=== PATIENT | male | born 1970 | race Caucasian/White ===

== ENCOUNTER 2016-10-23 07:32 | Inpatient (IN) | payer OTHER ==
[2016-10-23] MEDS ORDERED: SODIUM CHLORIDE 0.9% 1,000 ML IV STA (07:36)
[2016-10-23] MEDS ORDERED: ONDANSETRON 4 MG/2 ML VIAL IVP STA (07:36)
[2016-10-23] MEDS ORDERED: ASPIRIN 81 MG CHEW PO STA (07:36)
[2016-10-23] MEDS ORDERED: MORPHINE SULFATE 4 MG/ML SYRINGE IV STA (07:36)
[2016-10-23] MEDS ORDERED: NITROGLYCERIN OINT 1 INCH/GM PACKET TOPICAL STA (07:36)
[2016-10-23 07:53] LABS: Basophils # (A) 0.1 k/uL (0-0.2); Basophils % (A) 0 %; CH 31.6; CHCM 34.3; Eosinophils # (A) 0.6 k/uL (0-0.7); Eosinophils % (A) 3 %; HDW 2.46; HGB 19.3 gm/dL (13.0-17.5); Luc # (Auto) 0.17; Luc % (Auto) 1; Lymphocytes # (A) 0.7 k/uL (1.0-4.8); Lymphocytes % (A) 3 %; MCH 31.9 pg (25.0-35.0); MCHC 34.4 g/dL (31.0-37.0); MCV 92.6 fL (80.0-100.0); Mean Platelet Volume 7.4; Monocytes # (A) 0.8 k/uL (0-1.0); Monocytes % (A) 4 %; Neutrophils # (A) 16.9 k/uL (1.3-7.7); Neutrophils % (A) 88 %; RBC 6.05 m/uL (4.30-5.90); WBC 19.2 k/uL (3.8-10.6); WBC (Perox) 20.43
[2016-10-23] MEDS ORDERED: SODIUM CHLORIDE 0.9% 1,000 ML IV ONE (07:58)
[2016-10-23] MEDS ORDERED: HYDROmorphone 1 MG/ML 1 ML SYRINGE IVP STA (07:58)
[2016-10-23] MEDS ORDERED: LORazepam 2 MG/ML SYRINGE IV STA (08:03)
[2016-10-23 08:08] LABS: Partial Thromboplastin Time 23.3 sec (22.0-30.0); Prothrombin Time 10.6 sec (9.0-12.0)
[2016-10-23 08:09] LABS: ALT 108 U/L (21-72); AST 61 U/L (17-59); Alkaline Phosphatase 123 U/L (38-126); Anion Gap 17 mmol/L; Blood Urea Nitrogen 15 mg/dL (9-20); Calcium 10.7 mg/dL (8.4-10.2); Carbon Dioxide 27 mmol/L (22-30); Chloride 103 mmol/L (98-107); Glucose 173 mg/dL (74-99); Magnesium 1.9 mg/dL (1.6-2.3); Non-African American GFR(MDRD) >60 (>60 ml/min/1.73 sqM); Potassium 5.6 mmol/L (3.5-5.1); Sodium 147 mmol/L (137-145); Total Bilirubin 0.9 mg/dL (0.2-1.3); Total Protein 8.8 g/dL (6.3-8.2)
--- NOTE | 2016-10-23 08:16 | ED ---
Chest Pain HPI - General Chief Complaint: Chest Pain Stated Complaint: chest pain Time Seen by Provider: 10/23/16 07:36 Source: patient, family, EMS Mode of arrival: EMS - History of Present Illness Initial Comments: History of heart disease, NH he had MIs in the last 2 years presented to the ER around 7:30 AM with chest pain chest pain started about an hour ago he did does smoke cocaine and be bit nauseous is short-winded is diaphoretic and also feeling palpitations. Denies any headaches no neck stiffness has chest pain and he has shortness of breath and chest pain is worse with deep breaths he denies any fever no chills she is not coughing up any phlegm. Denies any abdominal pain no frequency urgency dysuria - Related Data Home Medications Medication Instructions Recorded Confirmed Nitroglycerin Sl Tabs [Nitrostat] 0.4 mg SUBLINGUAL Q5M PRN 10/23/16 10/23/16 Allergies Allergy/AdvReac Type Severity Reaction Status Date / Time No Known Allergies Allergy Verified 10/23/16 08:47 Review of Systems ROS Statement: Those systems with pertinent positive or pertinent negative responses have been documented in the HPI. ROS Other: All systems not noted in ROS Statement are negative. EKG Findings - EKG Comments: EKG Findings:: EKG is atrial fibrillation ventricular rate is 168 AL interval is , QRS duration is 86 QT/QTc is 270/451 review of this EKG shows some ST depression in lead 2 and aVF noticed , no ST elevation noticed in any of the EKGs Past Medical History Past Medical History: Coronary Artery Disease (CAD), COPD, Hypertension, Myocardial Infarction (NH) Additional Past Medical History / Comment(s): back injury sciatica, arthritis History of Any Multi-Drug Resistant Organisms: None Reported Past Surgical History: Orthopedic Surgery Additional Past Surgical History / Comment(s): knee Past Anesthesia/Blood Transfusion Reactions: No Reported Reaction Past Psychological History: No Psychological Hx Reported Smoking Status: Current every day smoker Past Alcohol Use History: Daily Past Drug Use History: Cocaine - Past Family History Mother Family Medical History: Myocardial Infarction (NH) Additional Family Medical History / Comment(s): Heart issues, unsure of General Exam - General Exam Comments Initial Comments: General: The patient is awake and alert, he is quite anxious. Skin: Skin is warm and dry and no rashes or lesions are noted. He has a psoriasis Eye: Pupils are equal, round and reactive to light, extra-ocular movements are intact; there is normal conjunctiva bilaterally. Ears, nose, mouth and throat: There are moist mucous membranes and no oral lesions. Neck: The neck is supple, there is no tenderness or JVD. Cardiovascular: On arrival he is atrial fibrillation with fast ventricular rate was around 150 the time of exam Respiratory: To auscultation bilateral, decreased breath sounds bilateral Gastrointestinal: Soft, non-distended, non-tender abdomen without masses or organomegaly noted. There is no rebound or guarding present. Bowel sounds are unremarkable. Back: There is no tenderness to palpation in the midline. There is no obvious deformity. Musculoskeletal: Normal ROM, no tenderness, There is no pedal edema. There is no calf tenderness or swelling. No cords were appreciated. Neurological: CN II-XII intact, Cranial nerves III through XII are intact. There are no obvious motor or sensory deficits. Coordination appears grossly intact. Speech is normal. Psychiatric: Cooperative, appropriate mood & affect, normal judgment. Course Vital Signs 10/23/16 10/23/16 07:37 08:00 Temperature 97.9 F Pulse Rate 169 H 104 H Respiratory 18 18 Rate Blood Pressure 138/99 130/68 O2 Sat by Pulse 99 2 L Oximetry I dictated the first EKG we noticed significant change in his EKG around 810, this EKG is a sinus echocardiogram Dedra is a 6 AL interval is 142 QRS duration is 88 QT/QTc is 320/25 of review of this EKG does not reveal any ST elevation or ST depression and it's not atrial fibrillation anymore Critical Care Time Total Critical Care Time: 45 Critical Care Time: Abdomen thin and with the [place] chest pain his heart rate was 169 according to her EKG with atrial fibrillation he smoked some mom snorted some cocaine earlier today he was quite diaphoretic quite distressed out he was resuscitated with fluids for some morphine with some benzos and then his heart rate dropped to 70 send him and he converted to sinus rhythm we held the beta blockers on purpose because is contraindicated in the cocaine induced tachycardia he was reassessed quite a few times last reassessment was done at 9:20 AM he is a lot more, now his heart rate is sinus his chest pain is down to 1/10 considering his chest pain and history of coronary artery disease and now. History of drug abuse especially cocaine he needs to be admitted considering his high high risk area I am canal hold off the blood thinners considering his risk of fall cerebral bleed abdominal the cardiology due to the sedation and that he will be on nitro and morphine in the benzos for now he is getting fluid hydration fluid he got a fluid resuscitation as well as some oxygen he be admitted under Dr. Tobias service and now [facility] and [facility] cardiology be consulted Disposition Clinical Impression: Tachycardia, Chest pain, Atrial fibrillation with rapid ventricular response Disposition: ADMITTED IP TO THIS HOSP Condition: Fair Referrals: None,Stated [Primary Care Provider] - 1-2 days
[2016-10-23 08:19] LABS: Creatine Kinase 284 U/L (55-170)
[2016-10-23 08:32] LABS: Troponin I <0.012 ng/mL (0.000-0.034)
[2016-10-23 08:34] LABS: Creatine Kinase MB 3.4 ng/mL (0.0-2.4)
--- NOTE | 2016-10-23 08:54 | XR ---
EXAMINATION TYPE: XR chest 2V DATE OF EXAM: 10/23/2016 8:29 AM COMPARISON: 02/03/2016 HISTORY: Chest pain TECHNIQUE: Frontal and lateral views of the chest are obtained. Examination is limited by the degree of inspiration. FINDINGS: There is no focal air space opacity, pleural effusion, or pneumothorax seen. The cardiac silhouette size is within normal limits. The osseous structures are intact. IMPRESSION: No acute cardiopulmonary process.
[2016-10-23] MEDS ORDERED: ACETAMINOPHEN TAB 325 MG TAB PO PRN (09:28)
[2016-10-23] MEDS ORDERED: ALPRAZolam 0.5 MG TAB PO PRN (09:28)
[2016-10-23] MEDS ORDERED: MORPHINE SULFATE 4 MG/ML SYRINGE IV PRN (09:28)
[2016-10-23] MEDS ORDERED: NITROGLYCERIN SL TABS 0.4 MG TAB SUBLINGUAL PRN (09:28)
[2016-10-23] MEDS ORDERED: IPRATROPIUM-ALBUTEROL 3 ML NEB INHALATION PRN (13:44)
--- NOTE | 2016-10-23 14:02 | P.CRDCN ---
History of Present Illness Consult date: 10/23/16 History of present illness: This is a 46-year-old gentleman with history of alcohol use and also cocaine use came to the hospital with complaints of generalized body ache chest pains and not feeling well. He was found to be in atrial fibrillation with fast ventricular response. It appears that patient converted to sinus rhythm before he left the emergency room. He is feeling better today. He did have a white count elevation also. He is also has some liver enzyme elevations. His first set of troponins are within normal limits. His conversion EKG shows sinus rhythm without acute ST-T abnormalities. We are going to get a echocardiogram and also serial cardiac enzymes studies. I'll start him on beta mina and aspirin. Further recommendations will depend upon clinical course. Review of Systems As per the chart Past Medical History Past Medical History: Coronary Artery Disease (CAD), COPD, Hyperlipidemia, Hypertension, Myocardial Infarction (DE) Additional Past Medical History / Comment(s): Pt states he had a small "DE" 2-3 yrs ago-it was suggested he have a cardiac cath but he declined, defect involving his spine, back pain, bilateral sciatica, syncopy r/t ETOH. Last Myocardial Infarction Date:: 2-3 yrs ago per pt History of Any Multi-Drug Resistant Organisms: None Reported Past Surgical History: Orthopedic Surgery Additional Past Surgical History / Comment(s): R knee arthroscopy. Past Anesthesia/Blood Transfusion Reactions: No Reported Reaction Past Psychological History: No Psychological Hx Reported Additional Psychological History / Comment(s): Pt resides with his significant other. He uses a cane/walker prn. He drives. Smoking Status: Current every day smoker Past Alcohol Use History: Occasional Additional Past Alcohol Use History / Comment(s): Pt started smoking in 1987 and is a 2 ppd smoker. He states he drinks alcohol every couple months now. Past Drug Use History: Cocaine Additional Drug Use History / Comment(s): Pt states he uses cocaine and last used last night. - Past Family History Mother Family Medical History: Myocardial Infarction (DE) Additional Family Medical History / Comment(s): Heart issues, unsure of what kind. States "heart problems run in the family." Father History Unknown: Yes Medications and Allergies Home Medications Medication Instructions Recorded Confirmed Type Nitroglycerin Sl Tabs [Nitrostat] 0.4 mg SUBLINGUAL Q5M PRN 10/23/16 10/23/16 History Allergies Allergy/AdvReac Type Severity Reaction Status Date / Time No Known Allergies Allergy Verified 10/23/16 08:47 Physical Exam Vitals: Vital Signs Temp Pulse Pulse Resp BP BP Pulse Ox 10/23/16 10:18 112 H 18 132/74 96 10/23/16 10:09 98.2 F 120 H 18 153/72 94 L Intake and Output 10/22/16 10/23/16 10/23/16 22:59 06:59 14:59 Output Total 200 Balance -200 Output: Urine 200 GENERAL EXAM: Patient is alert and oriented and doesn't appear to be in any acute distress HEENT: Normocephalic. Normal reaction of pupils, equal size, normal range of extraocular motion. No erythema or exudates in the throat. NECK: No masses, no nuchal rigidity. CHEST: No chest wall deformity. LUNGS: Expiratory rhonchi. HEART: S1 and S2 normal with no audible mumurs or gallops. Regular rhythm, ABDOMEN: No hepatosplenomegaly, normal bowel sounds, no guarding or rigidity. SKIN: No rashes CENTRAL NERVOUS SYSTEM: No focal deficits. EXTREMITIES: No cyanosis, clubbing or edema. Results 10/23/16 07:40 10/23/16 07:40 Current Medications Generic Name Dose Route Start Last Admin Trade Name Freq PRN Reason Stop Dose Admin Acetaminophen 650 mg 10/23/16 09:28 Tylenol Tab PO Q4HR PRN Pain Albuterol/Ipratropium 3 ml 10/23/16 13:44 Duoneb 0.5 Mg-3 Mg/3 Ml Soln INHALATION RT-QID PRN Shortness Of Breath Or Wheezing Alprazolam 0.5 mg 10/23/16 09:28 Xanax PO QID PRN Anxiety Aspirin 325 mg 10/24/16 09:00 Aspirin PO DAILY KIRSTIN Atorvastatin Calcium 40 mg 10/23/16 21:00 Lipitor PO HS KIRSTIN Sodium Chloride 1,000 mls @ 100 mls/hr 10/23/16 07:36 10/23/16 07:56 Saline 0.9% IV 10/23/16 17:35 100 mls/hr .Q10H STA Administration Sodium Chloride 1,000 mls @ 100 mls/hr 10/23/16 13:45 Saline 0.9% IV .Q10H KIRSTIN Morphine Sulfate 4 mg 10/23/16 09:28 Morphine Sulfate (Inj) IV Q5M PRN Chest Pain Nitroglycerin 0.4 mg 10/23/16 09:28 Nitrostat SUBLINGUAL Q5M PRN Chest Pain Pantoprazole Sodium 40 mg 10/23/16 13:45 Protonix IVP BID KIRSTIN Intake and Output 10/22/16 10/23/16 10/23/16 22:59 06:59 14:59 Output Total 200 Balance -200 Output: Urine 200 EKG Interpretations (text) Initial EKG showed atrial fibrillation with a rapid ventricular response. Current EKG showed sinus rhythm and sinus tachycardia Assessment and Plan (1) History of cocaine use Status: Acute (2) Atrial fibrillation with rapid ventricular response Status: Acute (3) Acute alcohol intoxication Status: Acute (4) Elevated AST (SGOT) Status: Acute Plan: We'll get an echocardiogram with Doppler study. Follow Cardec enzymes studies. Thyroid function studies will be obtained patient is advised to quit smoking and using cocaine pain I'll start him on beta mina and aspirin. Patient may benefit from a stress test in the future to rule out underlying ischemic heart disease.
[2016-10-23 14:44] LABS: Troponin I 0.022 ng/mL (0.000-0.034)
[2016-10-23 14:45] LABS: Creatine Kinase MB 3.7 ng/mL (0.0-2.4)
[2016-10-23 15:04] LABS: Hepatitis B Surface Ag Index 0.05
[2016-10-23 15:09] LABS: Hepatitis B Core IgM Index 0.02
[2016-10-23 15:21] LABS: Hepatitis C Virus IgG Index 0.02
[2016-10-23 15:22] LABS: Hepatitis C Virus IgG Ab Negative (Negative)
--- NOTE | 2016-10-23 16:37 | HP ---
DATE OF ADMISSION: Patient with history of alcohol abuse came to the hospital with complaints of not feeling well and palpitations. Patient was found to be in atrial fibrillation with rapid ventricular rate. Patient was subsequently admitted and patient was found to be dry with elevated hemoglobin, hemoconcentration, elevated WBC count. Patient also has elevated liver enzymes. AST and ALT ratio are not consistent with alcoholic hepatitis. Patient was subsequently admitted for further evaluation. Patient did use cocaine yesterday morning. Patient started having chest pain today, which is in the retrosternal area, nonradiating, associated with diaphoresis, associated with nausea. Denied any shortness of breath, although patient was unable to drink alcohol. Patient is an alcoholic and used to drink alcohol every day. He quit drinking alcohol every day, but he tried to drink alcohol yesterday and he was unable to drink alcohol because of his the retrosternal and epigastric abdominal pain and nausea. Patient was started on beta mina by Cardiology. I believe it is okay since his cocaine use was yesterday. With recent cocaine use beta mina can cause unopposed alpha adrenergic predominance, which can cause significant vasoconstriction. Thereby precipitating myocardial infarction, although cocaine use was yesterday. I believe beta mina is okay, but I will debt management counselor the patient regarding use beta blockers and cocaine can actually make him have a heart attack. Patient denied any fever, chills, cough. Chest x-ray did not show any acute cardiopulmonary process. Patient is not wheezing at this point of time. The patient does smoke every single day and does have history of COPD. REVIEW OF SYSTEMS: CONSTITUTIONAL: No fever, no malaise, no fatigue. HEENT: No recent visual problems or hearing problems. Denied any sore throat. CARDIOVASCULAR: As described in HPI. PULMONARY: As described in HPI. GASTROINTESTINAL: No diarrhea, no nausea, no vomiting, no abdominal pain. Normoactive bowel sounds. NEUROLOGICAL: No headaches, no weakness, no numbness. HEMATOLOGICAL: Denies any bleeding or petechiae. GENITOURINARY: Denies any burning micturition, frequency, or urgency. MUSCULOSKELETAL/RHEUMATOLOGICAL: Denies any joint pain, swelling, or any muscle pain. ENDOCRINE: Denies any polyuria or polydipsia. The rest of the 14 point review of systems is negative. PAST MEDICAL HISTORY: Significant for coronary artery disease, COPD, hyperlipidemia, hypertension. Patient says he had a small myocardial infarction in the past. Never had any cardiac cath in the past. Patient most probably had gastritis at that time. Orthopedic surgery, left knee arthroscopy. Patient continues to smoke a pack per day. Denied any alcohol abuse but does drink on and off alcohol. He used to be an alcoholic. He does use cocaine on and off. Last cocaine use was yesterday morning and his chest pain yesterday morning. FAMILY HISTORY: Mother had myocardial infarction. Father does not have any significant medical problems. Home medications include: Sublingual nitroglycerin. ALLERGIES: No known drug allergies. PHYSICAL EXAMINATION: VITAL SIGNS: Temperature 98.2, pulse of 120, blood pressure is 153/72, respiratory rate of 18, saturating at 96% on 2 L of O2 nasal cannula. GENERAL: The patient is alert and oriented x3, not in any acute distress. Well developed, well nourished. HEENT: Pupils are round and equally reacting to light. EOMI. No scleral icterus. No conjunctival pallor. Normocephalic, atraumatic. No pharyngeal erythema. No thyromegaly. CARDIOVASCULAR: S1 and S2 present. Patient is tachycardic. Regular rhythm. No murmurs, rubs, or gallops are appreciated. PULMONARY: Chest is clear to auscultation, no wheezing or crackles. ABDOMEN: Soft, nontender, nondistended, normoactive bowel sounds. No palpable organomegaly. MUSCULOSKELETAL: No joint swelling or deformity. EXTREMITIES: No cyanosis, clubbing, or pedal edema. NEUROLOGICAL: Gross neurological examination did not reveal any focal deficits. SKIN: No rashes. LABORATORY DATA: CBC, CMP are abnormal for elevated WBC 19,200. Hemoglobin is 9.3 and potassium is 5.6, because of this I discontinued his lisinopril. Sodium of 147, calcium 10.7, AST and ALT are elevated 61 and 108 not typical ratio for alcoholic hepatitis, because of which I will obtain a hepatitis panel, which was negative. TSH is 2.7. ASSESSMENT AND PLAN: 1. Atrial fibrillation with rapid ventricular rate and patient is spontaneously converted to sinus tachycardia. Management as mentioned above. I believe his tachycardia was due to intravascular depletion and dehydration secondary to alcohol use and cocaine use. Management as mentioned above. 2. Cocaine use. Counseling was provided. 3. 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 4. Elevated liver enzymes. Management as mentioned above. Will repeat liver enzymes for tomorrow and make sure they are not going up. Patient will be continued on IV fluids at this time at 100 mL per hour. Repeat electrolytes tomorrow. 5. Elevated hematocrit, probably due to nicotine use or even dehydration. 6. Mild hypercalcemia, which I believe is secondary to dehydration and intravascular depletion. Recheck calcium tomorrow. If no further testing is necessary if it comes down. 7. Hyperkalemia secondary to mild renal failure and also secondary to lisinopril. 8. Acute renal failure due to intravascular volume depletion and dehydration. 9. Patient's d-dimer is negative. 10. Leukocytosis, I believe, is reactive response. Patient does not appear to have any infection at this point of time. 11. Extensive counseling regarding nicotine use, alcohol use, cocaine use was provided. 12. Patient's primary care physician is none.
[2016-10-23] MEDS: PANTOPRAZOLE 40 MG/10 ML VIAL IVP SCH ×2 (17:09→20:50)
[2016-10-23] MEDS: SODIUM CHLORIDE 0.9% 1,000 ML IV SCH ×2 (17:10→23:45)
[2016-10-23] MEDS: METOPROLOL TARTRATE 25 MG TAB PO SCH ×2 (17:10→20:50)
--- NOTE | 2016-10-23 19:31 | US ---
EXAMINATION TYPE: US gallbladder DATE OF EXAM: 10/23/2016 7:08 PM COMPARISON: NONE CLINICAL HISTORY: RUQ pain, NPO, GB removed x 6 years ago. EXAM MEASUREMENTS: Liver Length: 15.9 cm CHD: 0.8 cm Right Kidney: 10.9 x 7.2 x 6.5 cm TECHNOLOGIST IMPRESSION: Suboptimal visualization of right kidney due to bowel gas Pancreas: echogenic, head and tail not well seen due to overlying bowel gas Liver: echogenic Gallbladder: removed CBD: wnl Right Kidney: Upper pole cyst vs prominent pyramid = 2.1 x 1.6 x 1.4 cm IMPRESSION: Cholecystectomy. No dilated ducts. 2 cm cyst in the upper pole right kidney. No hydroneph rosis. No evidence of a pancreatic mass. I do not see a cause for right upper quadrant pain. Normal Values: Liver Length: < 16cm wnl, 17-18cm upper limits, >18cm enlarged Renal Length = 9 - 12cm GB Wall: < 0.3cm CBD: < 0.6cm or < 1.0cm post cholecystectomy
[2016-10-23 20:04] LABS: Troponin I 0.019 ng/mL (0.000-0.034)
[2016-10-23] MEDS ORDERED: ATORVASTATIN 40 MG TAB PO SCH (21:00)
[2016-10-23 22:04] VITALS: RESP 18
[2016-10-24 06:35] LABS: ALT 66 U/L (21-72); AST 31 U/L (17-59); Alkaline Phosphatase 75 U/L (38-126); Anion Gap 8 mmol/L; Blood Urea Nitrogen 15 mg/dL (9-20); Calcium 8.6 mg/dL (8.4-10.2); Carbon Dioxide 26 mmol/L (22-30); Chloride 105 mmol/L (98-107); Cholesterol 137 mg/dL (<200); Glucose 101 mg/dL (74-99); HDL Cholesterol 27 mg/dL (40-60); Non-African American GFR(MDRD) >60 (>60 ml/min/1.73 sqM); Potassium 4.6 mmol/L (3.5-5.1); Sodium 139 mmol/L (137-145); Total Bilirubin 0.7 mg/dL (0.2-1.3); Total Protein 5.8 g/dL (6.3-8.2); Triglycerides 110 mg/dL (<150)
[2016-10-24] MEDS: METOPROLOL TARTRATE 25 MG TAB PO SCH (08:45)
[2016-10-24] MEDS: SODIUM CHLORIDE 0.9% 1,000 ML IV SCH (08:45)
[2016-10-24] MEDS: PANTOPRAZOLE 40 MG/10 ML VIAL IVP SCH (08:46)
[2016-10-24] MEDS ORDERED: ASPIRIN 325 MG TAB PO SCH (09:00)
[2016-10-24] MEDS ORDERED: LISINOPRIL 10 MG TAB PO SCH (09:00)
--- NOTE | 2016-10-24 10:35 | ECHOF ---
Referral Reason:Chest pain and cardiomyopathy MEASUREMENTS -------- HEIGHT: 167.6 cm WEIGHT: 96.6 kg BP: RVIDd: 3.1 cm (< 3.3) IVSd: 1.1 cm (0.6 - 1.1) LVIDd: 4.2 cm (3.9 - 5.3) LVPWd: 1.1 cm (0.6 - 1.1) IVSs: 1.7 cm LVIDs: 2.5 cm LVPWs: 1.6 cm LA Diam: 2.9 cm (2.7 - 3.8) Ao Diam: 3.4 cm (2.0 - 3.7) AV Cusp: 2.3 cm (1.5 - 2.6) LA Diam: 3.2 cm (2.7 - 3.8) MV EXCURSION: 15.618 mm (> 18.000) MV EF SLOPE: 145 mm/s (70 - 150) EPSS: 0.5 cm MV E Satnam: 0.81 m/s MV DecT: 139 ms MV A Satnam: 0.91 m/s MV E/A Ratio: 0.89 RAP: 5.00 mmHg RVSP: 14.60 mmHg FINDINGS -------- Sinus rhythm. This was a technically good study. There is borderline concentric left ventricular hypertrophy. Overall left ventricular systolic function is normal with, an EF between 60 - 65 %. The right ventricle is normal in size. The left atrial size is normal. The right atrium is normal in size. The aortic valve is trileaflet and appears structurally normal. The mitral valve leaflets are mildly thickened. Mild mitral annular calcification present. Trace tricuspid regurgitation present. Right ventricular systolic pressure is normal at < 35 mmHg. Pulmonic valve appears structurally normal. The aortic root size is normal. Normal inferior vena cava with normal inspiratory collapse consistent with estimated right atrial pressure of 5 mmHg. Echo free space may represent effusion or a pericardial fat pad. CONCLUSIONS -------- 1. Sinus rhythm. 2. Mild mitral annular calcification present. 3. Trace tricuspid regurgitation present. 4. Right ventricular systolic pressure is normal at < 35 mmHg. 5. Pulmonic valve appears structurally normal. 6. The aortic root size is normal. 7. Echo free space may represent effusion or a pericardial fat pad. 8. This was a technically good study. 9. There is borderline concentric left ventricular hypertrophy. 10. Overall left ventricular systolic function is normal with, an EF between 60 - 65 %. 11. The right ventricle is normal in size. 12. The left atrial size is normal. 13. The right atrium is normal in size. 14. The aortic valve is trileaflet and appears structurally normal. 15. The mitral valve leaflets are mildly thickened. REGIONAL SALES CONSULTANT: Jovanna Rachel RDCS
[2016-10-24 11:53] LABS: CH 31.4; CHCM 32.7; HCT 45.5 % (39.0-53.0); HDW 2.44; MCH 31.8 pg (25.0-35.0); MCHC 32.9 g/dL (31.0-37.0); MCV 96.6 fL (80.0-100.0); Mean Platelet Volume 8.9; RBC 4.71 m/uL (4.30-5.90); WBC 8.9 k/uL (3.8-10.6)
--- NOTE | 2016-10-24 14:37 | P.PN ---
Subjective This is a 46-year-old gentleman with history of alcohol use and also cocaine use came to the hospital with complaints of generalized body ache chest pains and not feeling well. He was found to be in atrial fibrillation with fast ventricular response. It appears that patient converted to sinus rhythm before he left the emergency room. He is feeling better today. He did have a white count elevation also. He is also has some liver enzyme elevations. Troponins were negative 3. Ejection fraction by echocardiographic study was 60-65%. Patient feels well overall today. Denies any further chest discomfort. Objective - Vital Signs Vital signs: Vital Signs Temp 97.0 F L 10/24/16 12:00 Pulse 72 10/24/16 12:00 Resp 18 10/24/16 12:00 BP 115/67 10/24/16 12:00 Pulse Ox 94 L 10/24/16 08:00 Intake & Output 10/23/16 10/24/16 10/24/16 18:59 06:59 18:59 Intake Total 500 700 Output Total 200 Balance 300 700 Weight 95.2 kg Intake: IV 500 700 Sodium Chloride 0.9% 1, 500 700 000 ml @ 100 mls/hr IV . Q10H KIRSTIN Rx#:[id number] Oral 0 Output: Urine 200 Other: # Voids 0 - Exam PHYSICAL EXAMINATION: HEENT: Head is atraumatic, normocephalic. Pupils equal, round. Neck is supple. There is no elevated jugular venous pressure. HEART EXAMINATION: Heart S1, S2 normal. No murmur or gallop heard. CHEST EXAMINATION: Lungs are clear to auscultation and precussion. No chest wall tenderness is noted on palpation or with deep breathing. ABDOMEN: Soft, nontender. Bowel sounds are heard. No organomegaly noted. EXTREMITIES: 2+ peripheral pulses with no evidence of peripheral edema and no calf tenderness noted. NEUROLOGIC patient is awake, alert and oriented -3. . - Labs CBC & Chem 7: 10/24/16 05:41 10/24/16 05:41 Labs: Abnormal Lab Results - Last 24 Hours (Table) 10/23/16 10/23/16 10/24/16 Range/Units 13:29 19:19 05:41 Glucose 101 H (74-99) mg/dL Total Creatine Kinase 198 H 171 H (55-170) U/L CK-MB (CK-2) 3.7 H* 3.0 H* (0.0-2.4) ng/mL Total Protein 5.8 L (6.3-8.2) g/dL Albumin 3.4 L (3.5-5.0) g/dL HDL Cholesterol 27 L (40-60) mg/dL Assessment and Plan (1) ETOH abuse Status: Acute (2) Acute renal failure Status: Acute (3) Atrial fibrillation with rapid ventricular response Status: Acute (4) History of cocaine use Status: Acute (5) Elevated AST (SGOT) Status: Acute Plan: Cardiology's perspective, patient may be able to be discharged home today. We will make him a follow-up appointment to see Dr. Dunham in the office post discharge. DNP note has been reviewed, I agree with a documented findings and plan of care. Patient was seen and examined.
[2016-10-24 17:01] VITALS: PULSE 84
[2016-10-24 17:06] VITALS: BP 119/74; TEMP 97.1
[2016-10-24] MEDS ORDERED: CARVEDILOL 3.125 MG TAB PO SCH (17:30)
[2016-10-25] MEDS ORDERED: ASPIRIN 81 MG CHEW PO SCH (09:00)
[2016-10-25] MEDS ORDERED: PANTOPRAZOLE 40 MG TABLET PO SCH (09:00)
== END 2016-10-24 18:25 | disposition home or self-care (01) | DRG 309 ==
LOC: EC 07:32 → 6SEL 09:28
PROVIDERS: ADMIT Hospitalist; ATTEND Hospitalist
DX: I48.91 Unspecified atrial fibrillation (principal); N17.9 Acute kidney failure, unspecified; E83.52 Hypercalcemia; E87.5 Hyperkalemia; E86.0 Dehydration; I10 Essential (primary) hypertension; Q76.49 Other congenital malformations of spine, not associated with scoliosis; F14.10 Cocaine abuse, uncomplicated; J44.9 Chronic obstructive pulmonary disease, unspecified; R74.8 Abnormal levels of other serum enzymes; I25.10 Atherosclerotic heart disease of native coronary artery without angina pectoris; F10.229 Alcohol dependence with intoxication, unspecified; T46.4X5A Adverse effect of angiotensin-converting-enzyme inhibitors, initial encounter; K29.20 Alcoholic gastritis without bleeding; M54.42 Lumbago with sciatica, left side; I25.2 Old myocardial infarction; M54.41 Lumbago with sciatica, right side; R07.9 Chest pain, unspecified; R11.0 Nausea; F17.200 Nicotine dependence, unspecified, uncomplicated; M19.90 Unspecified osteoarthritis, unspecified site; E78.5 Hyperlipidemia, unspecified; D72.829 Elevated white blood cell count, unspecified; Z71.6 Tobacco abuse counseling; Z82.49 Family history of ischemic heart disease and other diseases of the circulatory system; Z71.51 Drug abuse counseling and surveillance of drug abuser
CPT/HCPCS: 36415; 71020; 76705; 80053; 80061; 80074; 82550; 82553; 83735; 83880; 84443; 84484; 85025; 85027; 85379; 85610; 85730; 93005; 93306; 96361; 96374; 96375; 99291

== ENCOUNTER 2017-02-11 16:52 | Emergency (ER) | payer OTHER ==
[2017-02-11] MEDS ORDERED: SODIUM CHLORIDE 0.9% 1,000 ML IV ONE (17:02)
--- NOTE | 2017-02-11 17:09 | ED ---
Syncope HPI - General Chief Complaint: Syncope Stated Complaint: Head Injury/Laceration Time Seen by Provider: 02/11/17 16:59 Source: RN notes reviewed, old records reviewed - History of Present Illness Initial Comments: Patient is 47-year-old male with chief complaint of coughing so hard to the point he passed out. Patient reports that when he passed out he fell and hit his head on the cement floor. Family stated that this occurred approximately 30 minutes prior to arrival. He did lose consciousness for approximately 2 minutes. Patient states that he does have a laceration over the back scalp. She does report he has neck pain. Patient was placed in a c-collar upon triage. Patient denies any chest pain or shortness breath at this time. Patient states that he is does have a history of COPD. He states he's never coughed this hard before. Denies any fever or chills or abdominal pain. Patient reports that he is sweaty.Patient has a past medical history of GERD, dysuria intermittent A. fib, alcohol abuse. Patient reports that he currently takes aspirin daily. No other blood thinners. - Related Data Previous Rx's Medication Instructions Recorded Aspirin 81 mg PO DAILY #30 chew 10/24/16 Atorvastatin [Lipitor] 40 mg PO HS #30 tab 10/24/16 Carvedilol [Coreg] 3.125 mg PO BID-W/MEALS #60 tab 10/24/16 Acetaminophen-Codeine 300-30mg 1 tab PO Q6H PRN #15 tablet 02/11/17 [Tylenol #3] Cyclobenzaprine [Flexeril] 10 mg PO TID #15 tab 02/11/17 Allergies Allergy/AdvReac Type Severity Reaction Status Date / Time No Known Allergies Allergy Verified 02/11/17 18:13 Review of Systems ROS Statement: Those systems with pertinent positive or pertinent negative responses have been documented in the HPI. ROS Other: All systems not noted in ROS Statement are negative. Past Medical History Past Medical History: Coronary Artery Disease (CAD), COPD, Hyperlipidemia, Hypertension, Myocardial Infarction ([place]) Additional Past Medical History / Comment(s): Pt states he had a small "[place]" 2-3 yrs ago-it was suggested he have a cardiac cath but he declined, defect involving his spine, back pain, bilateral sciatica, syncopy r/t ETOH. Last Myocardial Infarction Date:: 2-3 yrs ago per pt History of Any Multi-Drug Resistant Organisms: None Reported Past Surgical History: Orthopedic Surgery Additional Past Surgical History / Comment(s): R knee arthroscopy. Past Anesthesia/Blood Transfusion Reactions: No Reported Reaction Past Psychological History: No Psychological Hx Reported Additional Psychological History / Comment(s): Pt resides with his significant other. He uses a cane/walker prn. He drives. Smoking Status: Current every day smoker Past Alcohol Use History: Occasional Additional Past Alcohol Use History / Comment(s): Pt started smoking in 1987 and is a 2 ppd smoker. He states he drinks alcohol every couple months now. Past Drug Use History: Cocaine Additional Drug Use History / Comment(s): Pt states he uses cocaine and last used last night. - Past Family History Mother Family Medical History: Myocardial Infarction ([place]) Additional Family Medical History / Comment(s): Heart issues, unsure of what kind. States "heart problems run in the family." Father History Unknown: Yes General Exam - General Exam Comments Initial Comments: 47-year-old male. He is diaphoretic. Patient does appear to be anxious. General appearance: alert Head exam: Present: atraumatic, normocephalic, normal inspection. Absent: other (Patient has a laceration over the posterior scalp measuring approximately 6 cm.) Eye exam: Present: normal appearance, PERRL, EOMI. Absent: scleral icterus, conjunctival injection, periorbital swelling ENT exam: Present: normal exam, normal oropharynx, mucous membranes moist Neck exam: Present: normal inspection. Absent: tenderness, meningismus, lymphadenopathy Respiratory exam: Present: normal lung sounds bilaterally. Absent: respiratory distress, wheezes, rales, rhonchi, stridor Cardiovascular Exam: Present: regular rate, normal rhythm, normal heart sounds. Absent: systolic murmur, diastolic murmur, rubs, gallop, clicks GI/Abdominal exam: Present: soft, normal bowel sounds. Absent: distended, tenderness, guarding, rebound, rigid Extremities exam: Present: normal inspection, full ROM, normal capillary refill. Absent: tenderness, pedal edema, joint swelling, calf tenderness Back exam: Present: normal inspection Neurological exam: Present: alert, oriented X3, CN II-XII intact Expanded Patient oriented to: Present: person, place, time Speech: Present: fluid speech Cranial nerves: EOM's Intact: Normal, Gag Reflex: Normal, Tongue Deviation: Normal Cerebellar function: Finger to Nose: Normal Upper motor neuron: Pronator Drift: Normal Sensory exam: Upper Extremity Light Touch: Normal, Lower Extremity Light Touch: Normal Motor strength exam: RUE: 5, LUE: 5, RLE: 5, LLE: 5 Eye Response: (4) open spontaneously Motor Response: (6) obeys commands Verbal Response: (5) oriented Nubia Total: 15 Psychiatric exam: Present: normal affect, normal mood Skin exam: Present: warm, dry, intact, normal color. Absent: rash Course Vital Signs 02/11/17 02/11/17 02/11/17 17:30 18:36 19:18 Temperature 97.7 F Pulse Rate 70 74 Pulse Rate [ 80 Filler Block Inserter Remover ] Respiratory 18 18 Rate Blood Pressure 147/93 155/83 O2 Sat by Pulse 99 100 Oximetry 02/11/17 19:54 Temperature 98.0 F Pulse Rate 77 Pulse Rate [ Filler Block Inserter Remover ] Respiratory 18 Rate Blood Pressure 140/90 O2 Sat by Pulse 94 L Oximetry EKG Findings - EKG Comments: EKG Findings:: EKG shows normal sinus rhythm. Ventricular rate of 75 bpm. MO interval 144 ms. QRS duration 94 ms. QT/QTc is 368/410 ms. No evidence of ST elevation no evidence of T-wave inversion. Patient has no evidence of atrial or ventricular arrhythmias. Medical Decision Making - Medical Decision Making This is a 47-year-old male with chief complaint of coughing to the point where he passed out. He states he has history of COPD. He states that he does cough frequently. He states he never coughed anything up. Patient coughs up with primary passed out fell and banged his head on the floor. He does have a laceration over the scalp measuring approximately 6 cm. Patient's CAT scan was reviewed to be negative of the brain. He does have significant disc bulge at C5 -C6. Patient reports that he did notice prior to this injury. They recommended MRI follow-up. Patient has no alert neurological deficits at this time. Discussed the do an outpatient MRI by his primary care provider. Patient refused costa in the back of his head. I did discuss this could be more susceptible to infection. Patient adamantly refused having costa. Patient's EKG and lab work were reviewed to be negative. Chest x-ray was reviewed to be negative. Patient will be discharged at this time with head injury instructions as well as the importance of monitoring for any infection over the cut. Patient agrees to follow-up tomorrow with his primary care provider. Patient understands treatment plan will comply. Return parameters were discussed. - Lab Data Result diagrams: 02/11/17 17:17 02/11/17 17:17 Lab Results 02/11/17 02/11/17 02/11/17 Range/Units 17:17 17:17 17:17 WBC 15.4 H (3.8-10.6) k/uL RBC 5.51 (4.30-5.90) m/uL Hgb 17.5 (13.0-17.5) gm/dL Hct 52.1 (39.0-53.0) % MCV 94.6 (80.0-100.0) fL MCH 31.8 (25.0-35.0) pg MCHC 33.6 (31.0-37.0) g/dL RDW 13.2 (11.5-15.5) % Plt Count 305 (150-450) k/uL Neutrophils % 57 % Lymphocytes % 30 % Monocytes % 5 % Eosinophils % 6 % Basophils % 1 % Neutrophils # 8.8 H (1.3-7.7) k/uL Lymphocytes # 4.5 (1.0-4.8) k/uL Monocytes # 0.8 (0-1.0) k/uL Eosinophils # 0.8 H (0-0.7) k/uL Basophils # 0.2 (0-0.2) k/uL PT (9.0-12.0) sec INR (<1.1) APTT (22.0-30.0) sec D-Dimer (<0.60) mg/L FEU Sodium 139 (137-145) mmol/L Potassium 4.3 (3.5-5.1) mmol/L Chloride 105 (98-107) mmol/L Carbon Dioxide 22 (22-30) mmol/L Anion Gap 12 mmol/L BUN 8 L (9-20) mg/dL Creatinine 0.93 (0.66-1.25) mg/dL Est GFR (MDRD) Af Amer >60 (>60 ml/min/1.73 sqM) Est GFR (MDRD) Non-Af >60 (>60 ml/min/1.73 sqM) Glucose 117 H (74-99) mg/dL Calcium 10.4 H (8.4-10.2) mg/dL Total Bilirubin 0.9 (0.2-1.3) mg/dL AST 29 (17-59) U/L ALT 45 (21-72) U/L Alkaline Phosphatase 103 (38-126) U/L Total Creatine Kinase 158 (55-170) U/L CK-MB (CK-2) 1.5 (0.0-2.4) ng/mL CK-MB (CK-2) Rel Index 0.9 Troponin I <0.012 (0.000-0.034) ng/mL Total Protein 8.0 (6.3-8.2) g/dL Albumin 4.6 (3.5-5.0) g/dL 02/11/17 Range/Units 17:17 WBC (3.8-10.6) k/uL RBC (4.30-5.90) m/uL Hgb (13.0-17.5) gm/dL Hct (39.0-53.0) % MCV (80.0-100.0) fL MCH (25.0-35.0) pg MCHC (31.0-37.0) g/dL RDW (11.5-15.5) % Plt Count (150-450) k/uL Neutrophils % % Lymphocytes % % Monocytes % % Eosinophils % % Basophils % % Neutrophils # (1.3-7.7) k/uL Lymphocytes # (1.0-4.8) k/uL Monocytes # (0-1.0) k/uL Eosinophils # (0-0.7) k/uL Basophils # (0-0.2) k/uL PT 10.7 (9.0-12.0) sec INR 1.1 (<1.1) APTT 22.0 (22.0-30.0) sec D-Dimer 0.42 (<0.60) mg/L FEU Sodium (137-145) mmol/L Potassium (3.5-5.1) mmol/L Chloride (98-107) mmol/L Carbon Dioxide (22-30) mmol/L Anion Gap mmol/L BUN (9-20) mg/dL Creatinine (0.66-1.25) mg/dL Est GFR (MDRD) Af Amer (>60 ml/min/1.73 sqM) Est GFR (MDRD) Non-Af (>60 ml/min/1.73 sqM) Glucose (74-99) mg/dL Calcium (8.4-10.2) mg/dL Total Bilirubin (0.2-1.3) mg/dL AST (17-59) U/L ALT (21-72) U/L Alkaline Phosphatase (38-126) U/L Total Creatine Kinase (55-170) U/L CK-MB (CK-2) (0.0-2.4) ng/mL CK-MB (CK-2) Rel Index Troponin I (0.000-0.034) ng/mL Total Protein (6.3-8.2) g/dL Albumin (3.5-5.0) g/dL - Radiology Data Radiology results: report reviewed CT brain was normal. No evidence of intracranial hemorrhage. Cervical spine shows suspected lurched disc herniation at C5-C6 and C6-C7 with anterior thecal sac compression and possible cord contact. Consider additional workup with an MRI. No acute osseous abnormalities found. Patient's chest x-ray did read to be negative. Disposition Clinical Impression: Cough, Syncope, Head injury, Scalp laceration, Cervical spine disease Disposition: HOME SELF-CARE Condition: Good Instructions: Head Injury (ED) Additional Instructions: Patient advised to follow-up with primary care provider tomorrow. Return to the emergency department if there is any alterations and altered mental status. Patient denies taking the wound clean. Return to the emergency department for any signs of infection, this would include redness, drainage and swelling over the laceration. Patient needs to follow-up in regards to cervical spine studies and may need an MRI in the future. Prescriptions: Acetaminophen-Codeine 300-30mg [Tylenol #3] 1 tab PO Q6H PRN #15 tablet PRN Reason: Pain Cyclobenzaprine [Flexeril] 10 mg PO TID #15 tab Referrals: Susan Hernandez MD [STAFF PHYSICIAN] - 1-2 days Time of Disposition: 19:28
[2017-02-11 17:28] LABS: Basophils # (A) 0.2 k/uL (0-0.2); Basophils % (A) 1 %; CH 32.3; CHCM 34.3; Eosinophils # (A) 0.8 k/uL (0-0.7); Eosinophils % (A) 6 %; HCT 52.1 % (39.0-53.0); HDW 2.37; HGB 17.5 gm/dL (13.0-17.5); Luc # (Auto) 0.23; Luc % (Auto) 2; Lymphocytes # (A) 4.5 k/uL (1.0-4.8); Lymphocytes % (A) 30 %; MCH 31.8 pg (25.0-35.0); MCHC 33.6 g/dL (31.0-37.0); MCV 94.6 fL (80.0-100.0); Mean Platelet Volume 7.4; Monocytes # (A) 0.8 k/uL (0-1.0); Monocytes % (A) 5 %; Neutrophils # (A) 8.8 k/uL (1.3-7.7); Neutrophils % (A) 57 %; RBC 5.51 m/uL (4.30-5.90); RDW 13.2 % (11.5-15.5); WBC 15.4 k/uL (3.8-10.6); WBC (Perox) 14.26
[2017-02-11 17:49] LABS: ALT 45 U/L (21-72); AST 29 U/L (17-59); Alkaline Phosphatase 103 U/L (38-126); Anion Gap 12 mmol/L; Blood Urea Nitrogen 8 mg/dL (9-20); Calcium 10.4 mg/dL (8.4-10.2); Carbon Dioxide 22 mmol/L (22-30); Chloride 105 mmol/L (98-107); Glucose 117 mg/dL (74-99); INR 1.1 (<1.1); Non-African American GFR(MDRD) >60 (>60 ml/min/1.73 sqM); Potassium 4.3 mmol/L (3.5-5.1); Prothrombin Time 10.7 sec (9.0-12.0); Sodium 139 mmol/L (137-145); Total Bilirubin 0.9 mg/dL (0.2-1.3)
[2017-02-11 17:51] LABS: Creatine Kinase 158 U/L (55-170)
[2017-02-11 18:04] LABS: Creatine Kinase MB 1.5 ng/mL (0.0-2.4); Troponin I <0.012 ng/mL (0.000-0.034)
[2017-02-11 18:37] VITALS: RESP 18
--- NOTE | 2017-02-11 18:43 | CT ---
EXAMINATION TYPE: CT brain cspine wo con DATE OF EXAM: 02/11/2017 5:44 PM COMPARISON: NONE HISTORY: Syncopal episode today. Posterior head pain and neck pain. CT DLP: 1770.00 mGycm, Automated exposure control for dose reduction was used. CONTRAST: None CT of the brain is performed utilizing 3 mm thick sections through the posterior fossa and 3 mm thick sections through the remaining calvarium. Study is performed within 24 hours of arrival to the hospital. No abnormal hyperdensity is present to suggest an acute intracranial hemorrhage. No mass lesion is evident. No acute infarcts are evident. Ventricles and sulci are appropriate for the patient age. Paranasal sinuses and mastoid air cells within the [id number] are clear. IMPRESSIONS: 1. Normal CT brain. CT cervical spine. COMPARISON: None CT of the cervical spine is performed in the axial plane at 2 mm thick sections. Reconstructed image s in the coronal, and sagittal plane are reviewed on the computer. No acute fractures are evident. Vertebral body alignment is normal. At C3-4 there is some central disc bulging which may have moderate anterior thecal sac compression. N o spinal canal stenosis is present. There appears to be a large central and left paracentral disc herniation C5-6 with moderate anterior thecal sac compression. This likely has cord contact. Endplate spurring is noted from the left superi or endplate C6. C6-7 may have large broad-based disc bulge with anterior thecal sac compression and possible cord con tact. Some endplate spurring is present. Vertebral body heights are preserved. No neural foraminal stenosis is evident. Note is made of scattered small lymphadenopathy within the cervical chains. There is calcification within posterior spinal ligament IMPRESSIONS: 1. Suspected large disc herniation C5-6 C6-7 with anterior thecal sac compression and possible cord c ontact. Consider additional workup with MRI. 2. Acute osseous abnormality is not identified.
--- NOTE | 2017-02-11 19:23 | XR ---
EXAMINATION TYPE: XR chest 2V DATE OF EXAM: 02/11/2017 7:03 PM COMPARISON: 10/23/2016 INDICATION: Pain fall TECHNIQUE: Single frontal view of the chest is obtained. FINDINGS: The heart size is normal. The pulmonary vasculature is normal. The lungs are clear. IMPRESSION: 1. No acute pulmonary process.
[2017-02-11 19:55] VITALS: BP 140/90; PULSE 77; TEMP 98
== END 2017-02-11 19:55 | disposition home or self-care (01) ==
LOC: EC 16:52
DX: S01.01XA Laceration without foreign body of scalp, initial encounter (principal); M50.222 Other cervical disc displacement at C5-C6 level; M48.8X2 Other specified spondylopathies, cervical region; R05 Cough; R61 Generalized hyperhidrosis; I48.91 Unspecified atrial fibrillation; F17.200 Nicotine dependence, unspecified, uncomplicated; Z79.82 Long term (current) use of aspirin; W01.198A Fall on same level from slipping, tripping and stumbling with subsequent striking against other object, initial encounter
CPT/HCPCS: 36415; 70450; 71020; 72125; 80053; 82550; 82553; 84484; 85025; 85379; 85610; 85730; 93005; 96360; 99285

== ENCOUNTER 2019-04-22 17:08 | Observation (INO) | payer OTHER ==
--- NOTE | 2019-04-22 17:42 | XR ---
EXAMINATION TYPE: XR chest 2V DATE OF EXAM: 04/22/2019 COMPARISON: 02/11/2017 HISTORY: Chest pain TECHNIQUE: Frontal and lateral views of the chest are obtained. FINDINGS: Heart and mediastinum are normal. Lungs are clear. Diaphragm is normal. Bony thorax appear s normal. There are chest leads. IMPRESSION: Normal chest. No change.
[2019-04-22 17:55] LABS: Basophils # (A) 0.2 k/uL (0-0.2); Basophils % (A) 1 %; Eosinophils # (A) 0.7 k/uL (0-0.7); Eosinophils % (A) 6 %; HCT 52.6 % (39.0-53.0); HGB 17.4 gm/dL (13.0-17.5); Lymphocytes # (A) 3.1 k/uL (1.0-4.8); Lymphocytes % (A) 26 %; MCH 29.8 pg (25.0-35.0); MCHC 33.1 g/dL (31.0-37.0); MCV 90.1 fL (80.0-100.0); Mean Platelet Volume 7.3; Monocytes # (A) 0.8 k/uL (0-1.0); Monocytes % (A) 7 %; Neutrophils % (A) 58 %; Platelet Count 344 k/uL (150-450); RBC 5.83 m/uL (4.30-5.90); RDW 13.4 % (11.5-15.5)
[2019-04-22 18:04] LABS: ALT 27 U/L (21-72); AST 25 U/L (17-59); African American GFR (CKD) >90 (>60 ml/min/1.73 sqM); Albumin 4.4 g/dL (3.5-5.0); Alkaline Phosphatase 117 U/L (38-126); Anion Gap 9 mmol/L; Blood Urea Nitrogen 10 mg/dL (9-20); Carbon Dioxide 25 mmol/L (22-30); Chloride 106 mmol/L (98-107); Glucose 118 mg/dL (74-99); Lipase 154 U/L (23-300); Magnesium 2.1 mg/dL (1.6-2.3); Potassium 4.5 mmol/L (3.5-5.1); Sodium 140 mmol/L (137-145); Total Bilirubin 0.6 mg/dL (0.2-1.3); Total Protein 7.3 g/dL (6.3-8.2)
[2019-04-22 18:10] LABS: D-Dimer 0.22 mg/L FEU (<0.60); Partial Thromboplastin Time 25.4 sec (22.0-30.0); Prothrombin Time 10.5 sec (9.0-12.0)
--- NOTE | 2019-04-22 18:18 | ED ---
Chest Pain HPI - General Chief Complaint: Chest Pain Stated Complaint: Chest pain Time Seen by Provider: 04/22/19 17:17 Source: patient, RN notes reviewed, old records reviewed Mode of arrival: wheelchair Limitations: no limitations - History of Present Illness Initial Comments: This is a 41-year-old male the ER for evaluation. This male presents today for evaluation of chest pain. History of smoking history of high blood pressure. Patient is not taking any medications. No recent travel history or sick contacts. Patient has had chest pain For a week. Worse today heaviness on his chest he also complains of significant shortness of breath with activity. Patient does admit to being a smoker. Patient is not on any breathing treatments for smoking and no diagnosis of COPD MD Complaint: chest pain -: days(s) Onset: during rest, during exertion Pain Location: substernal, left chest Pain Radiation: none Severity: moderate Severity scale (1-10): 4 Quality: aching Consistency: constant Improves With: nothing Worsens With: nothing Anginal Symptoms: dyspnea Other Symptoms: cough Treatments Prior to Arrival: none - Related Data Home Medications Medication Instructions Recorded Confirmed No Known Home Medications 04/22/19 04/22/19 Allergies Allergy/AdvReac Type Severity Reaction Status Date / Time No Known Allergies Allergy Verified 04/22/19 17:49 Review of Systems ROS Statement: Those systems with pertinent positive or pertinent negative responses have been documented in the HPI. ROS Other: All systems not noted in ROS Statement are negative. EKG Findings - EKG Comments: EKG Findings:: EKG shows sinus rhythm rate of 79, MD 146, QRS 94, QTc 421 Past Medical History Past Medical History: Coronary Artery Disease (CAD), COPD, Hyperlipidemia, Hypertension, Myocardial Infarction ([place]) Additional Past Medical History / Comment(s): Pt states he had a small "[place]" 2-3 yrs ago-it was suggested he have a cardiac cath but he declined, defect involving his spine, back pain, bilateral sciatica, syncopy r/t ETOH. Last Myocardial Infarction Date:: 2-3 yrs ago per pt History of Any Multi-Drug Resistant Organisms: None Reported Past Surgical History: Orthopedic Surgery Additional Past Surgical History / Comment(s): R knee arthroscopy. Past Anesthesia/Blood Transfusion Reactions: No Reported Reaction Past Psychological History: No Psychological Hx Reported Smoking Status: Current every day smoker Past Alcohol Use History: Occasional Past Drug Use History: Cocaine - Past Family History Mother Family Medical History: Myocardial Infarction ([place]) Additional Family Medical History / Comment(s): Heart issues, unsure of what kind. States "heart problems run in the family." Father History Unknown: Yes General Exam Limitations: no limitations General appearance: alert, in no apparent distress Head exam: Present: atraumatic, normocephalic, normal inspection Eye exam: Present: normal appearance, PERRL, EOMI. Absent: scleral icterus, conjunctival injection, periorbital swelling ENT exam: Present: normal exam, mucous membranes moist Neck exam: Present: normal inspection. Absent: tenderness, meningismus, lymphadenopathy Respiratory exam: Present: wheezes. Absent: normal lung sounds bilaterally, respiratory distress, rales, rhonchi, stridor Cardiovascular Exam: Present: regular rate, normal rhythm, normal heart sounds. Absent: systolic murmur, diastolic murmur, rubs, gallop, clicks GI/Abdominal exam: Present: soft, normal bowel sounds. Absent: distended, tenderness, guarding, rebound, rigid Extremities exam: Present: normal inspection, full ROM, normal capillary refill. Absent: tenderness, pedal edema, joint swelling, calf tenderness Back exam: Present: normal inspection Neurological exam: Present: alert, oriented X3, CN II-XII intact Psychiatric exam: Present: normal affect, normal mood Skin exam: Present: warm, dry, intact, normal color. Absent: rash Course Vital Signs 04/22/19 17:13 Temperature 98.3 F Pulse Rate 85 Respiratory 18 Rate Blood Pressure 134/87 O2 Sat by Pulse 97 Oximetry - Reevaluation(s) Reevaluation #1: 04/22/19 19:39 Record is reviewed Reevaluation #2: 04/22/19 19:39 Patient still chest pain Chest Pain MDM - MDM 49 male the ER for evaluation chest pain will admit for cardiology evaluation. Multiple attempts breathing treatments with wheezing history of smoking Critical Care Time Critical Care Time: Yes Total Critical Care Time: 31 Disposition Clinical Impression: Chest pain Disposition: ADMITTED IP TO THIS [facility] Condition: Fair Instructions (If sedation given, give patient instructions): Chest Pain (ED) Is patient prescribed a controlled substance at d/c from ED?: No Referrals: Estelita Winn MD [Primary Care Provider] - 1-2 days
[2019-04-22] MEDS ORDERED: MORPHINE SULFATE 4 MG/ML SYRINGE IV PRN (19:32)
[2019-04-22] MEDS ORDERED: methylPREDNISolone SOD SUCCI 125 MG/2 ML VIAL IV STA (19:32)
[2019-04-22] MEDS ORDERED: IPRATROPIUM-ALBUTEROL 3 ML NEB INHALATION STA (19:32)
[2019-04-22] MEDS ORDERED: NITROGLYCERIN SL TABS 0.4 MG TAB SUBLINGUAL PRN (19:32)
[2019-04-22] MEDS ORDERED: ASPIRIN 81 MG PO STA (19:32)
[2019-04-22] MEDS: SODIUM CHLORIDE 0.9% 1,000 ML IV SCH (20:07)
[2019-04-22] MEDS: IPRATROPIUM-ALBUTEROL 3 ML NEB INHALATION SCH ×2 (20:09→23:15)
[2019-04-22] MEDS: methylPREDNISolone SOD SUCCI 125 MG/2 ML VIAL IV SCH (21:58)
[2019-04-23] MEDS: IPRATROPIUM-ALBUTEROL 3 ML NEB INHALATION SCH ×3 (03:18→11:23)
[2019-04-23 06:33] LABS: Cholesterol 163 mg/dL (<200); HDL Cholesterol 40 mg/dL (40-60); LDL Cholesterol,Calculated 107 mg/dL (0-99); Triglycerides 78 mg/dL (<150)
[2019-04-23] MEDS: SODIUM CHLORIDE 0.9% 1,000 ML IV SCH (06:46)
[2019-04-23] MEDS ORDERED: INSULIN ASPART (NovoLOG) 100 UNIT/ML VIAL SQ SCH (07:30)
[2019-04-23 08:36] LABS: Glucose,Whole Blood 133 mg/dL (75-99)
--- NOTE | 2019-04-23 08:56 | P.CRDCN ---
History of Present Illness Consult date: 04/23/19 History of present illness: This is a 49-year-old gentleman with history of smoking, alcohol abuse and also previous drug abuse, who was admitted to this hospital in the past with evidence of paroxysmal atrial fibrillation. Patient is now admitted to the hospital mainly with complaints of right-sided chest pains. He claims that these pains are brought on by exertional activities. The pain is felt in the right parasternal area and seemed to be well circumscribed and localized. He claims that pain increases on deep breathing that is not associated with any change in intensity with movements of the chest. No radiation of the pain. No nausea vomiting or sweating. Yesterday patient got off and struck and walked into his house and he started having this pain. Because of continued pain and recurrent patient came to the emergency room. Since admission patient has been stable. His EKGs did not reveal any acute changes. Cardiac enzymes are negative. At th is point we will increase his activity and he felt remains stable, patient could be discharged home. Patient could be scheduled for a stress echocardiogram as an outpatient. Review of Systems As per the chart Past Medical History Past Medical History: Coronary Artery Disease (CAD), COPD, Hyperlipidemia, Hypertension, Myocardial Infarction (ID), Syncope Additional Past Medical History / Comment(s): Pt states he had a small "ID" 6- 7yrs ago-it was suggested he have a cardiac cath but he declined, defect involving his spine, back pain, bilateral sciatica, syncope r/t ETOH. Last Myocardial Infarction Date:: 6-7 History of Any Multi-Drug Resistant Organisms: None Reported Past Surgical History: Cholecystectomy, Orthopedic Surgery Additional Past Surgical History / Comment(s): L and R knee arthroscopy. Past Anesthesia/Blood Transfusion Reactions: No Reported Reaction Past Psychological History: No Psychological Hx Reported Smoking Status: Current every day smoker Past Alcohol Use History: Occasional Past Drug Use History: Cocaine Additional Drug Use History / Comment(s): Pt states he used cocaine a few years ago - Past Family History Mother Family Medical History: Myocardial Infarction (ID) Additional Family Medical History / Comment(s): Heart issues, unsure of what kind. States "heart problems run in the family." Father History Unknown: Yes Medications and Allergies Home Medications Medication Instructions Recorded Confirmed Type No Known Home Medications 04/22/19 04/22/19 History Allergies Allergy/AdvReac Type Severity Reaction Status Date / Time No Known Allergies Allergy Verified 04/22/19 21:38 Physical Exam Vitals: Vital Signs Temp Pulse Pulse Resp BP BP Pulse Ox 04/23/19 07:49 67 04/23/19 07:41 66 04/23/19 04:00 97.6 F 62 16 145/81 97 04/22/19 23:30 98.4 F 77 16 151/88 97 04/22/19 20:35 98.1 F 78 16 157/91 98 04/22/19 20:30 98 04/22/19 20:20 68 04/22/19 20:11 75 04/22/19 20:00 98.6 F 64 15 151/89 04/22/19 19:30 73 23 153/99 95 04/22/19 19:20 74 18 153/99 96 04/22/19 19:10 73 15 153/99 96 04/22/19 19:00 65 17 136/99 04/22/19 18:50 73 18 136/99 96 04/22/19 18:40 73 16 136/99 95 04/22/19 18:30 69 18 150/99 95 04/22/19 18:20 75 15 150/99 94 L 04/22/19 18:10 78 18 150/99 96 04/22/19 18:00 74 17 152/97 92 L 04/22/19 17:50 83 15 152/97 92 L 04/22/19 17:40 87 20 152/97 95 04/22/19 17:30 80 12 148/94 94 L 04/22/19 17:25 23 04/22/19 17:13 98.3 F 85 18 134/87 97 Intake and Output 04/22/19 04/23/19 04/23/19 22:59 06:59 14:59 Other: Voiding Method Toilet Toilet # Voids 2 Weight 87.407 kg GENERAL EXAM: Patient is alert and oriented and doesn't appear to be in any acut e distress HEENT: Normocephalic. Normal reaction of pupils, equal size, normal range of extraocular motion. No erythema or exudates in the throat. NECK: No masses, no nuchal rigidity. CHEST: No chest wall deformity. LUNGS: Equal air entry with no crackles or wheeze. HEART: S1 and S2 normal with no audible mumurs or gallops. Regular rhythm, femorals equal on both sides.. ABDOMEN: No hepatosplenomegaly, normal bowel sounds, no guarding or rigidity. SKIN: No rashes CENTRAL NERVOUS SYSTEM: No focal deficits. EXTREMITIES: No cyanosis, clubbing or edema. Results 04/22/19 17:23 04/22/19 17:23 Cardiac Enzymes 04/22/19 04/22/19 04/22/19 Range/Units 17:23 17:23 23:25 AST 25 (17-59) U/L Troponin I <0.012 <0.012 (0.000-0.034) ng/mL 04/23/19 Range/Units 05:31 AST (17-59) U/L Troponin I <0.012 (0.000-0.034) ng/mL Coagulation 04/22/19 Range/Units 17:23 PT 10.5 (9.0-12.0) sec APTT 25.4 (22.0-30.0) sec Lipids 04/23/19 Range/Units 05:31 Triglycerides 78 (<150) mg/dL Cholesterol 163 (<200) mg/dL HDL Cholesterol 40 (40-60) mg/dL CBC 04/22/19 Range/Units 17:23 WBC 12.0 H (3.8-10.6) k/uL RBC 5.83 (4.30-5.90) m/uL Hgb 17.4 (13.0-17.5) gm/dL Hct 52.6 (39.0-53.0) % Plt Count 344 (150-450) k/uL Comprehensive Metabolic Panel 04/22/19 Range/Units 17:23 Sodium 140 (137-145) mmol/L Potassium 4.5 (3.5-5.1) mmol/L Chloride 106 (98-107) mmol/L Carbon Dioxide 25 (22-30) mmol/L BUN 10 (9-20) mg/dL Creatinine 0.82 (0.66-1.25) mg/dL Glucose 118 H (74-99) mg/dL Calcium 10.0 (8.4-10.2) mg/dL AST 25 (17-59) U/L ALT 27 (21-72) U/L Alkaline Phosphatase 117 (38-126) U/L Total Protein 7.3 (6.3-8.2) g/dL Albumin 4.4 (3.5-5.0) g/dL Current Medications Generic Name Dose Route Start Last Admin Trade Name Freq PRN Reason Stop Dose Admin Albuterol/Ipratropium 3 ml 04/22/19 20:00 04/23/19 07:40 Duoneb 0.5 Mg-3 Mg/3 Ml Soln INHALATION 3 ml RT-Q4H [facility] Administration Aspirin 325 mg 04/23/19 09:00 Aspirin PO DAILY [facility] Atorvastatin Calcium 80 mg 04/23/19 09:00 Lipitor PO DAILY [facility] Sodium Chloride 1,000 mls @ 100 mls/hr 04/22/19 19:45 04/23/19 06:46 Saline 0.9% IV Not Given .Q10H [facility] Insulin Aspart 0 unit 04/23/19 07:30 Novolog SQ ACHS [facility] Protocol Methylprednisolone Sodium Succinate 60 mg 04/22/19 21:00 04/22/19 21:58 Solu-Medrol IV Not Given Q12HR [facility] Morphine Sulfate 4 mg 04/22/19 19:32 Morphine Sulfate (Inj) IV Q6HR PRN Chest Pain Nitroglycerin 0.4 mg 04/22/19 19:32 Nitrostat SUBLINGUAL Q5M PRN Chest Pain Intake and Output 04/22/19 04/23/19 04/23/19 22:59 06:59 14:59 Other: Voiding Method Toilet Toilet # Voids 2 Weight 87.407 kg 04/22/19 17:23 04/22/19 17:23 EKG Interpretations (text) Sinus rhythm with left axis deviation Assessment and Plan (1) History of atrial fibrillation Current Visit: Yes Status: Acute Code(s): Z86.79 - PERSONAL HISTORY OF OTHER DISEASES OF THE CIRCULATORY SYSTEM SNOMED Code(s): 643020135 (2) Chest pain Current Visit: Yes Status: Acute Code(s): R07.9 - CHEST PAIN, UNSPECIFIED SNOMED Code(s): 66299781 (3) History of cocaine use Current Visit: No Status: Acute Code(s): Z87.898 - PERSONAL HISTORY OF OTHER SPECIFIED CONDITIONS SNOMED Code(s): 626675002 (4) History of alcohol use Current Visit: Yes Status: Acute Code(s): Z87.898 - PERSONAL HISTORY OF OTHER SPECIFIED CONDITIONS SNOMED Code(s): 584966967 Plan: Clinical a chest pains appear to be atypical. So far EKGs and cardiac enzymes are negative. I'll get a surface echocardiogram and increase his activity. If the echo is normal and patient is stable without any recurrence of chest pain, patient could be discharged home. Outpatient stress test to be arranged as stress echocardiogram
[2019-04-23] MEDS ORDERED: ASPIRIN 325 MG TAB PO SCH (09:00)
[2019-04-23] MEDS ORDERED: ATORVASTATIN 80 MG TAB PO SCH (09:00)
[2019-04-23 09:18] VITALS: BP 157/90; PULSE 55; RESP 18; TEMP 97.7
[2019-04-23] MEDS: methylPREDNISolone SOD SUCCI 125 MG/2 ML VIAL IV SCH (09:29)
--- NOTE | 2019-04-23 22:53 | HP ---
HISTORY AND PHYSICAL HISTORY AND PHYSICAL/DISCHARGE SUMMARY: DATE OF SERVICE: 04/23/2019 CHIEF COMPLAINT: Chest pain. HISTORY OF PRESENT ILLNESS: This 49-year-old gentleman with a past medical history of CAD, COPD, hypertension, hyperlipidemia, myocardial infarction being followed by Dr. Estelita Winn in the outpatient setting was admitted to [facility] with complaints of chest pain. The pressure felt in the lower part of the chest which was present 1 week and worsening. The patient also had some shortness of breath. The patient came to [facility] and admitted for further evaluation and treatment. The patient also reports significant social stressors also. Cardiology evaluate the patient and recommended outpatient followup. PAST MEDICAL HISTORY: Past medical history of CAD, COPD, hypertension, hyperlipidemia, myocardial infarction, syncope. MEDICATIONS ARE: Home medications are none. ALLERGIES: None. FAMILY HISTORY: History of myocardial infarction in the family. Heart problems in the family. SOCIAL HISTORY: History of smoking, continued ongoing. No alcohol intake. REVIEW OF SYSTEMS: ENT: No diminished vision. No diminished hearing. CARDIOVASCULAR: As mentioned earlier. RESPIRATORY: As mentioned earlier. GI no nausea or vomiting. : No dysuria. NERVOUS SYSTEM: No numbness or weakness. ALLERGY/IMMUNOLOGY: No asthma or hayfever. MUSCULOSKELETAL as mentioned earlier. HEMATOLOGY/ONCOLOGY: No history of anemia. ENDOCRINE: No history of diabetes or hypothyroidism. CONSTITUTIONAL: As mentioned earlier. DERMATOLOGY: Negative. RHEUMATOLOGY: Negative. PSYCHIATRY as mentioned. PHYSICAL EXAMINATION: Alert and oriented times three. Pulse is 55, blood pressure 157/80, respiration 18, temperature is 97.9, pulse ox 98% on room air. HEENT: Conjunctivae normal. NECK: No jugular venous distention. CARDIOVASCULAR: S1, S2 muffled. RESPIRATION: Breath sounds diminished in the bases. Scattered rhonchi and crackles. ABDOMEN: Soft, nontender. No mass palpable. LEGS: No edema. No swelling. NERVOUS SYSTEM: Higher functions as mentioned. Moves all four limbs. No focal motor- sensory deficits. LYMPHATICS: No lymph nodes palpable in the neck, axillae or groin. SKIN: No ulcer, rash or bleeding. JOINTS: No active deforming arthropathy. LABS: At this time shows WBC 12, hemoglobin 17.4 and glucose 118, LDL is 107. ASSESSMENT: 1. Chest pain myocardial infarction ruled out, possible pleuritic, rule out coronary artery disease. 2. Chronic obstructive pulmonary disease with acute purulent tracheobronchitis and increased WBC. 3. Increased random blood sugar. 4. History of coronary artery disease. 5. History of chronic obstructive pulmonary disease. 6. Hypertension. 7. Hyperlipidemia. 8. Myocardial infarction. 9. History of noncompliance. 10.History of ETOH. 11.History of cholecystectomy. RECOMMENDATIONS: In this 49-year-old gentleman who presented with multiple complex medical issues, at this time I would recommend to continue current medications, management and symptomatic treatment. Otherwise, I recommend a course of bronchodilators and follow closely with Cardiology as an outpatient for further evaluation and treatment. The patient might require outpatient evaluation including stress test and the cardiac catheterization. Please note the patient previously for cardiac cath. The patient is extremely keen on going home at this time, wanting to go AMA. On exam, vitals are stable. Cardiovascular: S1, S2. Respiration: No rhonchi. No crackles. Abdomen is soft. Nervous system: No focal deficits. DISCHARGE ADVICE AND MEDICATIONS: 1. Diet is cardiac diet. 2. Activity limited until follow up. 3. Follow up with Dr. Estelita Winn in 2-3 days. 4. Follow up with Dr. Dunham as advised. DISCHARGE MEDICATIONS: 1. Bactrim DS 1 p.o. b.i.d. for 3 days. 2. Prednisone 40 mg daily for 3 days, 30 for 3 days, 20 for 3 days, 10 for 3 days. 3. Albuterol 2 puffs q.6. 4. Lopressor 12.5 mg p.o. b.i.d. 5. Ecotrin 81 mg p.o. daily. MMODL / IJN: [id number] /
== END 2019-04-23 11:40 | disposition home or self-care (01) ==
LOC: EC 17:08 → 1SOBS 19:32
PROVIDERS: ADMIT Hospitalist; ATTEND Hospitalist
DX: R07.89 Other chest pain (principal); I25.10 Atherosclerotic heart disease of native coronary artery without angina pectoris; F10.10 Alcohol abuse, uncomplicated; J44.0 Chronic obstructive pulmonary disease with (acute) lower respiratory infection; J20.9 Acute bronchitis, unspecified; E78.5 Hyperlipidemia, unspecified; M54.32 Sciatica, left side; M54.31 Sciatica, right side; I10 Essential (primary) hypertension; I25.2 Old myocardial infarction; F17.200 Nicotine dependence, unspecified, uncomplicated; I48.0 Paroxysmal atrial fibrillation; Z91.19 Patient's noncompliance with other medical treatment and regimen; Z87.898 Personal history of other specified conditions; Z90.49 Acquired absence of other specified parts of digestive tract; Z82.49 Family history of ischemic heart disease and other diseases of the circulatory system
CPT/HCPCS: 96376; 96374; 99291; 36415; 94640; 93005; 85379; 83880; 80061; 80053; 83690; 83735; 84484 ×2; 85025; 85610; 85730; 71046; G0378 ×2; J2930 ×2

== ENCOUNTER → 2023-08-17 | Outpatient (CLI) | payer OTHER ==
--- NOTE | 2023-08-18 07:27 | XR ---
EXAMINATION TYPE: XR sacroiliac joint comp BILAT DATE OF EXAM: 08/17/2023 COMPARISON: None HISTORY: Arthropathic psoriasis TECHNIQUE: Sacroiliac joints are examined in 3 projections FINDINGS: Sacroiliac iliac joints are patent. No erosions are evident. No acute fractures are evident . Sacrum as visualized appears intact. IMPRESSION: 1. No sacroiliac joint degenerative changes.
--- NOTE | 2023-08-18 07:30 | XR ---
EXAMINATION TYPE: XR femur bilateral DATE OF EXAM: 08/17/2023 COMPARISON: None HISTORY: Arthropathic psoriasis TECHNIQUE: 2 view bilateral femurs FINDINGS: Right knee: Right femoral head articulates with the acetabulum. There is loss of the joint space supe riorly. No acute fractures evident. There is some degenerative joint changes at the right knee. No joint effusion is evident. Left knee: Femoral head articulates with the acetabulum. There is loss of the joint space. No acute f racture or dislocation is evident. Mild degenerative changes at the left knee. IMPRESSION: 1. Loss of the bilateral hip joint spaces.
--- NOTE | 2023-08-18 07:35 | XR ---
EXAMINATION TYPE: XR Hip Bilateral Complete DATE OF EXAM: 08/17/2023 COMPARISON: Bilateral femur same date HISTORY: Psoriatic arthritis TECHNIQUE: Two-view bilateral hips FINDINGS: Femoral heads articulate with the acetabulum. There is loss of the superior joint space wit h no significant space between the femoral head and the acetabulum. No significant femoral head defor mity evident. No suspicious erosions. IMPRESSION: 1. 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
== END | disposition home or self-care (01) ==
LOC: RADXRMAIN 16:08
PROVIDERS: ATTEND Internal Medicine
DX: L40.50 Arthropathic psoriasis, unspecified (principal); M16.0 Bilateral primary osteoarthritis of hip
CPT/HCPCS: 72202; 73521